=== PATIENT | female | born 1995 | race Two or more races ===

== ENCOUNTER 2017-07-21 17:19 | Emergency (ER) | payer OTHER ==
[~2017-07-21] VITALS: Ht 165.1 cm; Wt 99.8 kg
[~2017-07-21 17:19] MED LIST: ANTIVERT25 M1 PO; KETO10TA2 PO
[2017-07-21] MEDS ORDERED: TRILEPTAL300 MG (17:37)
== END 2017-07-21 22:50 | disposition home or self-care (01) ==
LOC: ER 17:19
DX: B34.9 Viral infection, unspecified (principal)

== ENCOUNTER → 2022-08-05 | Emergency (ER) | payer OTHER ==
[~2022-08-05] VITALS: Ht 165.1 cm; Wt 104.3 kg
[~2022-08-05] MED LIST changes: +ANTIVERT25 M2 PO; +HEMATRON; +TRILEPTAL300 MG
== END | disposition home or self-care (01) ==
LOC: ER 12:12
DX: R53.83 Other fatigue (principal); R42 Dizziness and giddiness